=== PATIENT | female | born 1980 ===

== ENCOUNTER 2016-08-19 01:25 | Observation (INO) | payer OTHER ==
[2016-08-19] MEDS ORDERED: Sodium Chloride 0.9% 1,000 ML IV ONE (01:39)
[2016-08-19 02:02] VITALS: RESP 20
[2016-08-19 02:07] LABS: EOS % 0.1 % (0.0-4.0); MONO # 0.1 K/uL (0.0-0.8); MONO % 1.2 % (0.0-10.0)
[2016-08-19 02:13] LABS: BASO % 0.3 % (0.0-2.0); HEMATOCRIT 37.7 % (34.0-47.0); LYMPH # 0.9 K/uL (1.0-4.3); LYMPH % 8.4 % (20.0-40.0); MEAN CELL VOLUME 73.2 fL (81.0-99.0); MEAN CORPUSCULAR HEMOGLOBIN 22.9 pg (27.0-31.0); MEAN CORPUSCULAR HGB CONC 31.3 g/dL (33.0-37.0); MEAN PLATELET VOLUME 9.2 fL (7.2-11.7); PLATELET COUNT 277 K/uL (130-400); RED CELL DISTRIBUTION WIDTH 14.3 % (11.5-14.5); WHITE BLOOD COUNT 10.2 K/uL (4.8-10.8)
[2016-08-19 02:19] LABS: CHLORIDE 111 mmol/L (98-107)
[2016-08-19 02:20] LABS: POTASSIUM 4.2 mmol/L (3.6-5.2); SODIUM 148 mmol/L (132-148)
[2016-08-19 02:22] LABS: ALB/GLOB RATIO 1.5 (1.0-2.1); ALKALINE PHOSPHATASE 59 U/L (38-126); ALT/SGPT 88 U/L (9-52); AST/SGOT 66 U/L (14-36); BILIRUBIN,TOTAL 0.3 mg/dL (0.2-1.3); BLOOD UREA NITROGEN 13 mg/dL (7-17); CARBON DIOXIDE 15 mmol/L (22-30); GFR AFRICAN-AMERICAN > 60; GLUCOSE,RANDOM 183 mg/dL (65-105); TOTAL PROTEIN 7.9 g/dL (6.3-8.3)
[2016-08-19 02:23] LABS: CALCIUM 8.6 mg/dl (8.6-10.4)
[2016-08-19 02:45] LABS: ALCOHOL SERUM 523 mg/dl (0-10)
--- NOTE | 2016-08-19 02:49 | C.PDOC ---
History Of Present Illness Pt was BIBEMS due to public alcohol intoxication. Time Seen by Provider: 08/19/16 01:31 Chief Complaint (Nursing): Substance Abuse History Per: EMS History/Exam Limitations: intoxication Onset/Duration Of Symptoms: Unknown (tonight) Current Symptoms Are (Timing): Still Present Modifying Factor(s): Alcohol Severity: Severe Additional History Per: Prior Records Past Medical History Reviewed: Historical Data, Nursing Documentation, Vital Signs Vital Signs: Last Vital Signs Temp 98.2 F 08/19/16 06:28 Pulse 75 08/19/16 06:28 Resp 20 08/19/16 06:28 BP 127/88 08/19/16 06:28 Pulse Ox 96 08/19/16 06:28 Family History: States: Unknown Family Hx - Social History Hx Alcohol Use: Yes Hx Substance Use: (unknown) Review Of Systems Review Of Systems: ROS cannot be obtained secondary to pt's inabilty to answer questions. Physical Exam - Physical Exam Appears: No Acute Distress, Other (AOB, intoxicated. Sleeping, but responds to painful stimuli. Maintaining airway. ) Skin: Normal Color, Warm, Dry Head: Atraumatic Eye(s): bilateral: PERRL Neck: Normal ROM, No Midline Cervical Tenderness, No Step Off Deformity, Supple Chest: Symmetrical, No Deformity Cardiovascular: Rhythm Regular Respiratory: Normal Breath Sounds, No Accessory Muscle Use Gastrointestinal/Abdominal: Soft, No Distention Extremity: Normal ROM, No Deformity Neurological/Psych: No Response To Commands, Other (Moving all extremties) Pain Response: Withdraws With Pain Gait: Unable To Assess ED Course And Treatment - Laboratory Results Result Diagrams: 08/19/16 01:49 08/19/16 01:49 Lab Interpretation: Abnormal Interpretation Of Abnormal: Severely elevated alcohol level Urine POC: Negative O2 Sat by Pulse Oximetry: 96 Pulse Ox Interpretation: Normal ED OBSERVATION Date of observation admission: 08/19/16 Time of observation admission: 02:00 - Observation admission statement Patient is being placed in observation because:: Alcohol intoxication. - Goals of Observation Goals of observation are:: Sobriety. - Progress Note Progress Note: 08/19/16 07:03 Pt was checked every 2 hours and remained stable. Pt is now awake, but still heavily intoxicated. Disposition - Disposition Disposition Time: 07:00 Condition: IMPROVED - Clinical Impression Clinical Impression: Ethyl alcohol poisoning Physician Patient Turnover Patient Signed Over To: Aneudy Hicks DO Handoff Comments: to reassess pt once sober.
[2016-08-19 02:54] LABS: NEUTROPHIL 92 % (50-75); TOTAL CELLS COUNTED 100
[2016-08-19 02:55] LABS: LARGE PLATELETS PRESENT
[2016-08-19 13:10] VITALS: BP 169/107; PULSE 113; TEMP 97.9; O2SAT 99
== END 2016-08-19 14:16 | disposition home or self-care (01) ==
LOC: C.ER 01:25 → SUPCPDRO 01:25 → C.9OBSV 02:50
PROVIDERS: ADMIT Emergency Medicine; ATTEND Emergency Medicine
DX: F10.121 Alcohol abuse with intoxication delirium (principal); Y90.8 Blood alcohol level of 240 mg/100 ml or more

== ENCOUNTER 2016-08-23 11:31 | Observation (INO) | payer OTHER ==
[2016-08-23] MEDS ORDERED: Sodium Chloride 0.9% 1,000 ML IV ONE (11:52)
[2016-08-23] MEDS ORDERED: Sodium Chloride 0.9% 1,000 ML ONE (12:02)
--- NOTE | 2016-08-23 12:09 | C.PDOC ---
History Of Present Illness 36 year old female presents to the ED via EMS after she was found altered in front of her home. Patient has previously been seen in this ED for alcohol intoxication. HPI and ROS limited secondary to condition. Time Seen by Provider: 08/23/16 11:35 Chief Complaint (Nursing): Altered Mental Status History Per: EMS History/Exam Limitations: Clinical Condition, Intoxication Onset/Duration Of Symptoms: Unknown Current Symptoms Are (Timing): Still Present Past Medical History Reviewed: Historical Data, Nursing Documentation, Vital Signs Vital Signs: Last Vital Signs Temp 98.1 F 08/23/16 14:24 Pulse 78 08/23/16 14:24 Resp 18 08/23/16 14:24 BP 120/77 08/23/16 14:24 Pulse Ox 96 08/23/16 16:17 - Medical History PMH: No Chronic Diseases Family History: States: No Known Family Hx - Social History Hx Alcohol Use: Yes Hx Substance Use: No (unknown) - Immunization History Hx Tetanus Toxoid Vaccination: No Hx Influenza Vaccination: No Hx Pneumococcal Vaccination: No Review Of Systems Review Of Systems: ROS cannot be obtained secondary to pt's inabilty to answer questions. Physical Exam - Physical Exam Appears: Non-toxic, Other (+Drowsy appearing) Skin: Normal Color, Warm, Dry Head: Atraumatic, Normacephalic, No Swelling, No Abrasion, No Laceration, No Other (No signs of trauma) Eye(s): bilateral: Normal Inspection, PERRL (+Reactive but sluggish B/L), Other (+Dilated to 6mm) Oral Mucosa: Moist Neck: Normal, Normal ROM, No Midline Cervical Tenderness, No Paracervical Tenderness, No Step Off Deformity, Supple Cardiovascular: Rhythm Regular Respiratory: Normal Breath Sounds, No Accessory Muscle Use, No Rales, No Rhonchi , No Wheezing Gastrointestinal/Abdominal: Normal Exam, Bowel Sounds, Soft, No Tenderness, No Guarding, No Rebound Extremity: Normal ROM (+Moving all extremities spontaneously ), No Deformity Neurological/Psych: Other (+Arousable with sternal rub) ED Course And Treatment - Laboratory Results Result Diagrams: 08/23/16 12:01 08/23/16 12:01 O2 Sat by Pulse Oximetry: 96 (Room air) Pulse Ox Interpretation: Normal - Radiology CXR: Viewed By Me, Read By Radiologist CXR Interpretation: Yes: Other (Poor inspiration with low lung volumes crowded bronchovascular markings and mild bibasilar atelectasis.) - CT Scan/US CT Head w/o contrast Other Rad Studies (CT/US): Read By Radiologist, Radiology Report Reviewed CT/US Interpretation: IMPRESSION: No acute intracranial hemorrhage. Minor mucosal thickening ethmoid air complex and sphenoid sinus Progress Note: CT Head w/o contrast, CXR, EKG, Blood work, UA, UDS, UPREG ordered and reviewed. Patient given IV NS bolus. 4:15pm- Patient's cousin is at bedside (Kinsey June), and would like to take patient home. She is willing to take responsiblity forgetting patient home safely. Patient is able to ambulate well in ED - Will discharge to her cousin's care. Disposition Counseled Patient/Family Regarding: Studies Performed, Diagnosis, Need For Followup - Disposition Disposition: HOME/ ROUTINE Disposition Time: 16:15 Condition: STABLE - Clinical Impression Clinical Impression: Alcohol intoxication - Scribe Statement The provider has reviewed the documentation as recorded by the Scribe Hali You. Provider Attestation: All medical record entries made by the Scribe were at my direction and personally dictated by me. I have reviewed the chart and agree that the record accurately reflects my personal performance of the history, physical exam, medical decision making, and the department course for this patient. I have also personally directed, reviewed, and agree with the discharge instructions and disposition.
[2016-08-23 12:14] LABS: BASO # 0.1 K/uL (0.0-0.2); EOS # 0.5 K/uL (0.0-0.7); EOS % 7.6 % (0.0-4.0); LYMPH # 2.4 K/uL (1.0-4.3); LYMPH % 40.5 % (20.0-40.0); MEAN CELL VOLUME 73.3 fL (81.0-99.0); MEAN CORPUSCULAR HEMOGLOBIN 22.8 pg (27.0-31.0); MEAN CORPUSCULAR HGB CONC 31.1 g/dL (33.0-37.0); MONO # 0.8 K/uL (0.0-0.8); MONO % 14.2 % (0.0-10.0); NRBC % 0.1 % (0.0-2.0); RED CELL DISTRIBUTION WIDTH 14.9 % (11.5-14.5)
[2016-08-23 12:18] LABS: CHLORIDE 108 mmol/L (98-107); SODIUM 146 mmol/L (132-148)
[2016-08-23 12:20] LABS: BILIRUBIN,TOTAL 0.2 mg/dL (0.2-1.3); GFR AFRICAN-AMERICAN > 60
[2016-08-23 12:21] LABS: ALB/GLOB RATIO 1.5 (1.0-2.1); ALKALINE PHOSPHATASE 47 U/L (38-126); ALT/SGPT 55 U/L (9-52); AST/SGOT 30 U/L (14-36); BLOOD UREA NITROGEN 9 mg/dL (7-17); CARBON DIOXIDE 19 mmol/L (22-30); GLUCOSE,RANDOM 101 mg/dL (65-105); TOTAL PROTEIN 7.4 g/dL (6.3-8.3)
[2016-08-23 12:35] LABS: ALCOHOL SERUM 440 mg/dl (0-10)
--- NOTE | 2016-08-23 12:58 | RAD ---
PROCEDURE: CHEST RADIOGRAPH, 1 VIEW HISTORY: AMS COMPARISON: None available. FINDINGS: LUNGS: Poor inspiration with low lung volumes crowded bronchovascular markings and mild bibasilar atelectasis. PLEURA: No pneumothorax or pleural fluid seen. CARDIOVASCULAR: Normal. OSSEOUS STRUCTURES: No significant abnormalities. VISUALIZED UPPER ABDOMEN: Normal. OTHER FINDINGS: None. IMPRESSION: Poor inspiration with low lung volumes crowded bronchovascular markings and mild bibasilar atelectasis.
[2016-08-23 13:11] LABS: URINE BILIRUBIN NEGATIVE (NEGATIVE); URINE BLOOD 2+ (NEGATIVE); URINE COLOR Straw (YELLOW); URINE GLUCOSE (UA) NORMAL (Normal); URINE KETONE NEGATIVE (NEGATIVE); URINE LEUKOCYTE ESTERASE NEG Leu/uL (Negative); URINE PROTEIN NEGATIVE (NEGATIVE); URINE UROBILINOGEN NORMAL mg/dL (0.2-1.0); WBC URINE < 1 /hpf (0-5)
[2016-08-23 13:12] LABS: RBC URINE < 1 /hpf (0-3)
--- NOTE | 2016-08-23 13:46 | CT ---
PROCEDURE: CT HEAD WITHOUT CONTRAST. HISTORY: R/O Bleed AMS COMPARISON: None available. TECHNIQUE: Axial computed tomography images were obtained through the head/brain without intravenous contrast. Radiation dose: Total exam DLP = 832.25 mGy-cm. This CT exam was performed using one or more of the following dose reduction techniques: Automated exposure control, adjustment of the mA and/or kV according to patient size, and/or use of iterative reconstruction technique. FINDINGS: HEMORRHAGE: No intracranial hemorrhage. BRAIN: No mass effect or edema. No atrophy or chronic microvascular ischemic changes. VENTRICLES: Unremarkable. No hydrocephalus. CALVARIUM: Unremarkable. PARANASAL SINUSES: Mild mucosal thickening ethmoid air complex and sphenoid sinus MASTOID AIR CELLS: Unremarkable as visualized. No inflammatory changes. OTHER FINDINGS: None. IMPRESSION: No acute intracranial hemorrhage Minor mucosal thickening ethmoid air complex and sphenoid sinus
[2016-08-23 14:27] VITALS: BP 120/77; PULSE 78; RESP 18; TEMP 98.1
[2016-08-23 16:13] VITALS: O2SAT 96
--- NOTE | 2016-08-23 23:26 | CARD ---
APPROVED REPORT EKG Measurement Heart [id number] <Conclusion> Poor data quality, interpretation may be adversely affected Normal sinus rhythm Possible Left atrial enlargement Nonspecific ST abnormality Prolonged QT Abnormal ECG
== END 2016-08-23 16:14 | disposition home or self-care (01) ==
LOC: C.ER 11:31 → C.9OBSV 13:07
PROVIDERS: ADMIT Emergency Medicine; ATTEND Emergency Medicine
DX: F10.120 Alcohol abuse with intoxication, uncomplicated (principal); Y90.8 Blood alcohol level of 240 mg/100 ml or more
CPT/HCPCS: 70450; 71010; 80053; 80320; 80324; 80329; 80345; 80346; 80349; 80353; 80358; 80361; 81001; 82948; 83992; 84484; 84703; 85025; 93005; 96360; G0378; J7040